=== PATIENT | male | born 1985 | race African-American/Black ===

== ENCOUNTER 2024-03-13 15:10 | Inpatient (IN) | payer OTHER ==
[2024-03-13] VITALS (13 sets, daily range): BP systolic 108–118; BP diastolic 71; PULSE 75–78; TEMP 97.7–97.9; O2SAT 96–100
[~2024-03-13] VITALS: Ht 188 cm; Wt 130.0 kg
--- NOTE | 2024-03-13 16:40 | NUR ---
1528 Report received from NORBERTO Brantley at [facility] emergency department. 1640 Pt arrived to ICU from [facility] via EMS transportation. NORBERTO Vela met in room to assist pt to bed. Transfer of care at this time. Pt attached to monitors and vital signs obtained. VSS. Blood sugar obtained. Insulin gtt initiated by this RN. Pt did not report pain or discomfort during assessment. Pt reported slight nausea that is not bothersome at this time. Pt did not have any questions, concerns, or complaints at this time.
[2024-03-13] MEDS ORDERED: NS 1,000 ML IV SCH (17:15)
[2024-03-13] MEDS ORDERED: D5 1/2 NS 1,000 ML IV SCH (17:15)
[2024-03-13] MEDS ORDERED: Insulin Human Regular/NS 100 ML IV SCH (17:15)
[2024-03-13] MEDS ORDERED: Acetaminophen 325 MG TAB PO PRN (17:30)
[2024-03-13] MEDS ORDERED: Polyethylene Glycol 3350 17 GM PDS PO PRN (17:30)
[2024-03-13] MEDS ORDERED: Docusate Sodium 100 MG CAP PO PRN (17:30)
[2024-03-13] MEDS ORDERED: Ondansetron 4 MG/2 ML VIAL IV PRN (17:30)
[2024-03-13] MEDS ORDERED: ZYLOPRIM 100MG100 MG PO (18:21)
[2024-03-13 18:22] LABS: BASO # 0.1 K/mm3 (0.0-0.2); BASO % 1.4 % (0.0-2.0); EOS % 0.3 % (0.0-4.0); GRAN % 52.2 % (42.2-75.2); HEMATOCRIT 43.8 % (42.0-52.0); HEMOGLOBIN 14.6 g/dl (13.5-18.0); LYMPH # 2.1 K/mm3 (1.2-3.4); LYMPH % 36.2 % (20.0-51.0); MEAN CELL VOLUME 81 fl (80.0-100.0); MEAN CORPUSCULAR HEMOGLOBIN 27 pg (27-31); MEAN CORPUSCULAR HGB CONC 33 g/dl (33.0-37.0); MEAN PLATELET VOLUME 12.3 fl (7.4-10.4); MONO # 0.6 K/mm3 (0.1-0.6); MONO % 9.6 % (1.7-9.3); PLATELET COUNT 208 K/mm3 (130-400)
[2024-03-13] MEDS ORDERED: ZOCOR 40MG40 MG PO (18:22)
[2024-03-13] MEDS ORDERED: COZAAR 50MG50 MG/TAB PO (18:26)
[2024-03-13] MEDS ORDERED: LIPITOR 40MG TA40 MG PO (18:26)
[2024-03-13] MEDS ORDERED: GLUCOPHAGE500 MG/TAB PO (18:27)
[2024-03-13 18:44] LABS: ALBUMIN 3.5 g/dL (3.5-5.0); BILIRUBIN,TOTAL 0.3 mg/dL (0.2-1.2); CALCIUM 9.7 mg/dL (8.4-10.2); CREATININE, serum 2.22 mg/dL (0.72-1.25); MAGNESIUM 2.2 mg/dL (1.6-2.6); PHOSPHOROUS 3.3 mg/dL (2.3-4.7); POTASSIUM 4.1 mEq/L (3.5-4.5); TOTAL PROTEIN 7.1 g/dl (6.2-8.1)
--- NOTE | 2024-03-13 19:09 | NUR ---
PT'S TAKING PT'S HOME MEDICATIONS, WALLET, AND GOLD CHAIN HOME WITH HER.
--- NOTE | 2024-03-13 21:15 | NUR ---
Received report from day shift nurse Donnie. Pt is in bed with call light within reach and bed at low position. Pt has family at beside. Pt is currently on insulin and fluids at this time. Pt's vitals are stable at this time. Will continue with pt care.
[2024-03-13 21:47] LABS: CALCIUM 8.2 mg/dL (8.4-10.2); POTASSIUM 3.5 mEq/L (3.5-4.5)
[2024-03-14] VITALS (158 sets, daily range): BP systolic 111–132; BP diastolic 61–81; PULSE 61–86; TEMP 97.7–98.4; O2SAT 93–100
[2024-03-14 00:02] LABS: CALCIUM 9.4 mg/dL (8.4-10.2); CREATININE, serum 1.98 mg/dL (0.72-1.25); POTASSIUM 3.6 mEq/L (3.5-4.5)
[2024-03-14 05:19] LABS: CALCIUM 8.8 mg/dL (8.4-10.2); CREATININE, serum 1.66 mg/dL (0.72-1.25); POTASSIUM 3.3 mEq/L (3.5-4.5)
[2024-03-14] MEDS ORDERED: *Potassium Replacement Protocol MC SCH (05:30)
[2024-03-14] MEDS ORDERED: Potassium Chloride 100 ML IV SCH (05:30)
--- NOTE | 2024-03-14 06:49 | NUR ---
Pt had an uneventful night. Pt's vitals were stable throughout the night. Pt is currently on insulin drip and fluids. Pt is resting in bed with call light within reach and bed in low position. Will give report to day shift nurse.
--- NOTE | 2024-03-14 07:00 | NUR ---
REPORT RECEIVED FROM NORBERTO NUNEZ. PT RESTING IN BED, VSS. INSULIN AND FLUIDS INFUSING TO PERIPHERAL IV IN L FOREARM. PT IS ALERT AND ORIENTED, DENIES NEEDS AT THIS TIME, CALL LIGHT IN REACH.
[2024-03-14 07:31] LABS: CALCIUM 8.4 mg/dL (8.4-10.2); CREATININE, serum 1.57 mg/dL (0.72-1.25); POTASSIUM 3.7 mEq/L (3.5-4.5)
[2024-03-14] MEDS ORDERED: Glucagon 1 MG VIAL IM PRN (08:30)
[2024-03-14] MEDS ORDERED: Dextrose (Glucose) 15 GM (4 x 3.75 GM) Chewable TABLET PACK PO PRN (08:30)
[2024-03-14] MEDS ORDERED: Dextrose 50% Water 25 GM/50 ML SYRINGE IV PRN (08:30)
[2024-03-14] MEDS ORDERED: NS 1,000 ML IV SCH (08:45)
[2024-03-14] MEDS ORDERED: Allopurinol 100 MG TAB PO SCH (09:00)
[2024-03-14] MEDS ORDERED: Insulin Glargine-ygfn (Lantus) SQ SCH (09:00)
--- NOTE | 2024-03-14 10:55 | NUR ---
Senior It Recruiter met with patient to comlete initial intake. Patient lives in [place] with his , Estrellita (ph#[phone]) and their children. Patient recently retired from the and does not have a primary care provider established at this time as he previously used [facility] for all care. Patient uses a CPAP and no other DME currently. Patient will require diabetic education and consult has been placed. Patient does not have DPOA-HC and his , Estrellita is legal next of kin. Patient plans to return home at time of discharge. Discharge Plan: Home
[2024-03-14] MEDS ORDERED: Allopurinol 100 MG TAB PO ONE (12:00)
[2024-03-14] MEDS ORDERED: Insulin Lispro (HumaLOG) SQ SCH (12:00)
--- NOTE | 2024-03-14 13:08 | NUR ---
Data: Patient accepted spiritual care visit offered during Key Account Manager rounds. Discussion about nondenominational; beliefs; and spiritual care in general. Assessment: Patient desired prayer and was curious about how Chaplains provide non-denomintational care. Plan of Care: Key Account Manager provided supportive listening, discussion, and prayer. Patient thanked Key Account Manager for the visit. Chaplains will remain available as needed/requested while Patient is admitted to this hospital.
[2024-03-14 14:47] LABS: CALCIUM 8.4 mg/dL (8.4-10.2); CREATININE, serum 1.65 mg/dL (0.72-1.25)
--- NOTE | 2024-03-14 15:37 | NUR ---
03/14/[id number]-DIABETES EDUCATION CONSULT. 38 YO MALE ADMITTED TO ICU FOR DKA, NEW ONSET DM (ASSUMING TYPE 2). PATIENT IS UNAWARE OF ANY FAMILY HISTORY OF DM. PATIENT RECENTLY DISCHARGED FROM THE [employer] AND PREVIOUSLY HAD ALL MEDICAL CARE DONE AT [facility]. HE STATES HE WAS TOLD HE WAS PRE-DIABETIC SEVERAL YEARS AGO AND WAS TAKING 500 MG METFORMIN DAILY PRIOR TO ADMIT TO HOSPITAL. A1C 18.8%; GLUCOSE 371 MG/DL ON ADMIT. PROVIDED EDUCATION AND PATIENT PERFORMED FINGERSTICK BG ON HIMSELF SUCCESSFULLY. PATIENT STATES HE DOES NOT DRINK REGULAR SODA, JUICE, OR ALCOHOL. PATIENT STATES HIS BIGGEST BEHAVIOR CHANGE WILL NEED TO BE PORTION SIZES OF CARBOHYDRATE RICH FOODS (RICE, PASTA, BREADS, ETC.); WHICH WE REVIEWED PORTION GOAL OF 60-75GM CARBS/MEAL, 15GM CARB PER SNACK. PATIENT DOES NOT HAVE INTEREST IN GETTING A CGM DEVICE; STATES HE DOES NOT LIKE THE IDEA OF PEOPLE BEING ABLE TO SEE IT ON HIS ARM, AND IS WARY OF USING ONE. I DID EXPLAIN THAT THE SENSORS CAN BE WORN ON THE STOMACH, AND CAN BE WORN IN THE SHOWER, POOL, ETC. BUT PATIENT IS NOT SURE HE WANTS THIS. EXPLAINED THAT HE WILL NEED TO PRICK HIS FINGER TO MONITOR BG THEN, RECOMMEND CHECKING AT: FASTING, AND BEFORE MEALS IF HE DISCHARGES ON LISPRO SLIDING SCALE. PATIENT LIKELY WILL NEED A HIGHER DOSAGE OF LANTUS FOR MAINTENANCE DUE TO BWT OF 266 LB. CONSIDER INCREASE IF BG ARE NOT CONTROLLED. PATIENT HAS INTEREST IN FOLLOWING UP WITH ME FOR OUTPATIENT DIABETES EDUCATION, HOWEVER HE WILL NEED A REFERRAL FROM A PCP. REQUEST FOR SOCIAL WORK TO HELP THIS PATIENT ESTABLISH WITH A PCP HE [facility], AND CAN NO LONGER GO TO [facility] FOR GENERAL CARE. WILL REQUEST REFERRAL FOR OUTPATIENT SERVICES SOON NEW PCP IS ESTABLISHED. KML,MS,RD,CSSD,LD.
[2024-03-14] MEDS ORDERED: VIAGRA100 M1 PO (16:28)
[2024-03-14 19:32] LABS: CALCIUM 8.5 mg/dL (8.4-10.2); CREATININE, serum 1.81 mg/dL (0.72-1.25); POTASSIUM 4.2 mEq/L (3.5-4.5)
--- NOTE | 2024-03-14 19:53 | NUR ---
PT ALERT AND ORIENTED. PT MOTIVATED TO LEARN HOW TO PERFORM HIS OWN SHOTS AND CHECK HIS OWN GLUCOSE. STABLE ON ROUNDS. NO SIGN OF DISTRESS AT THIS TIME.
[2024-03-14] MEDS ORDERED: Atorvastatin 40 MG TAB PO SCH (21:00)
[2024-03-14 22:36] LABS: CALCIUM 8.3 mg/dL (8.4-10.2); CREATININE, serum 1.79 mg/dL (0.72-1.25); POTASSIUM 4.5 mEq/L (3.5-4.5)
[2024-03-15] VITALS (33 sets, daily range): BP systolic 109–144; BP diastolic 62–100; PULSE 71–104; TEMP 97.6–98.3; O2SAT 97–100
--- NOTE | 2024-03-15 06:45 | NUR ---
REMAINS STABLE ON ROUNDS. PT IS MOTIVATED TO CONTROL DIABETES. ASKING QUESTIONS. PERFORMING HIS OWN INJECTIONS. PT DID C/O GOUT PAIN IN HANDS THIS MORNING. PT STATES HE TAKES 1600MG OF IBUPROFEN AT HOME. DISCUSSEDED WITH PT THAT THAT IS TWICE TO RECOMMENDED DOSAGE. DISCUSSED WITH HIM THAT DOSAGES THAT HIGH COULD DAMAGE HIS KIDNEYS. CALLED PROVIDER ORDER FOR NORCO. ICE BAGS GIVEN TO PT TO HELP WITH PAIN. NO SIGN OF DISTRESS AT THIS TIME. CONTINUE PLAN OF CARE.
[2024-03-15 08:37] LABS: CALCIUM 8.5 mg/dL (8.4-10.2); CREATININE, serum 1.3 mg/dL (0.72-1.25); POTASSIUM 3.2 mEq/L (3.5-4.5)
[2024-03-15] MEDS ORDERED: Potassium Bicarbonate/Citrate 20 MEQ Effervescent TAB PO SCH (08:45)
[2024-03-15] MEDS ORDERED: Allopurinol 100 MG TAB PO SCH (09:00)
--- NOTE | 2024-03-15 09:36 | NUR ---
03/15/[id number]-Diabetes Education Consult- Provided patient with printed information on estimated daily intake goals (calories, carbohydrates, proteins, fats, and hydration goal) for when he discharges home. Patient requested this yesterday from me. Patient is comfortable with using an application such as 'My Fitness Pal' to track his food intake and attempting to stay within parameters. Estimated daily needs upon discharge: 2800 calories (MSJ * 1.5 -500 kcal/d for wt. loss); 280gm carbohydrate (divided between 3 meals and 2-3 snacks; no more than 75gm per meal; no more than 15-25 gm per snack paired with protein source), 140-150gm protein focused on lean sources, 121gm fat focused on heart healthy sources, and hydration goal of 100-105 oz./day. Patient reports understanding of materials given today. KML,MS,RD,CSSD,LD
[2024-03-15] MEDS ORDERED: PREDNISONE10 MG PO (10:46)
[2024-03-15] MEDS ORDERED: GLUCOSE TEST ST1 DEV MC (10:46)
[2024-03-15] MEDS ORDERED: GLUTOSE 1515 GM PO (10:46)
[2024-03-15] MEDS ORDERED: GLUCAGON EMERGEN1 M1 SQ (10:46)
[2024-03-15] MEDS ORDERED: INSULIN PEN NE1 EAC1 MC (10:46)
[2024-03-15] MEDS ORDERED: BD ALCOHOL1 SWA MC (10:46)
[2024-03-15] MEDS ORDERED: LANCETS MC (10:46)
[2024-03-15] MEDS ORDERED: NOVOLOG FLEX100 U/ML SQ (10:46)
[2024-03-15] MEDS ORDERED: FREESTYLE PREC1 EAC5 MC (10:46)
[2024-03-15] MEDS ORDERED: INSULIN GL100 UNIT/2 SQ (10:46)
[2024-03-15] MEDS ORDERED: ZYLOPRIM 100MG100 MG PO (10:49)
[2024-03-15] MEDS ORDERED: GLUCOPHAGE XR500 M1 PO (10:49)
--- NOTE | 2024-03-15 10:50 | NUR ---
PATIENT AWAKE IN BED, A&OX4, PLEASANT. PATIENT SHOWS INTEREST IN EDUCATION ABOUT DIABETES MANAGEMENT AND ASKED QUESTIONS ABOUT HIS MEDICATION, EDUCATION PROVIDED. H RR NORMAL, R RR NORMAL. SKIN GROSSLY INTACT, WITH NS RUNNING AT 150 TO LFA. GAIT IS STEADY, NO WEAKNESS NOTED. PT DOES C/O ABOUT GOUT PAIN STATES 03/31. NORCO GIVEN, PT EDUCATED ON POC CALL LIGHT IN REACH
--- NOTE | 2024-03-15 12:25 | NUR ---
PATIENT DISCHARGED HOME WITH FAMILY. LEFT UNIT AT 1220 WITH ALL PERSONAL BELONGS. DISCHARGE INSTRUCTIONS GIVEN TO THE PATIENT. ALL QUESTIONS ADDRESSED. NEW MEDICATIONS REVIEWED. PT VERBALIZED UNDERSTANDING, INT DISCONTINUED. VS WNL
--- NOTE | 2024-03-15 13:07 | NUR ---
Blueprint Blocker attended clinical rounds with the team and patient will be discharged home today.
[2024-03-15] MEDS ORDERED: LANTUS SOLOS100 U/ML SQ (15:05)
== END 2024-03-15 12:20 | disposition home or self-care (01) | DRG 638 ==
LOC: ICU 15:10
PROVIDERS: ADMIT Internal Medicine
DX: E11.10 Type 2 diabetes mellitus with ketoacidosis without coma (principal); N17.9 Acute kidney failure, unspecified; K21.9 Gastro-esophageal reflux disease without esophagitis; N52.9 Male erectile dysfunction, unspecified; F43.10 Post-traumatic stress disorder, unspecified; E79.0 Hyperuricemia without signs of inflammatory arthritis and tophaceous disease; E78.5 Hyperlipidemia, unspecified; I10 Essential (primary) hypertension; E66.9 Obesity, unspecified; G47.30 Sleep apnea, unspecified; Z79.84 Long term (current) use of oral hypoglycemic drugs; Z23 Encounter for immunization; Z68.34 Body mass index [BMI] 34.0-34.9, adult
CPT/HCPCS: J1650; J1815; J2405; J3480; J7030